=== PATIENT | female | born 1970 | race Caucasian/White ===

== ENCOUNTER 2016-06-29 17:07 | Emergency (ER) | payer BC ==
[2016-06-29] MEDS ORDERED: Morphine Sulfate 2 MG/ML SYRINGE ONE (18:01)
[2016-06-29] MEDS ORDERED: Sulfameth/Trimethoprim DS 800-160mg TAB ONE (18:01)
[2016-06-29] MEDS ORDERED: Cephalexin 500 MG CAP ONE (18:01)
--- NOTE | 2016-06-29 18:19 | ERRECORD ---
[facility] EMERGENCY RECORD HPI ABSCESS (18:03 LLDO) CHIEF COMPLAINT: Patient presents for evaluation of swelling, Patient presents for evaluation of pain, Denies drainage from wound, Denies suspected foreign body, Patient presents for evaluation of has 2 superficial abscesses in the hairline at the back of the neck. swollen and tender. terrified she has spider eggs growing in her neck and they will destroy the previous neck surgery. 3 days. very tender. HISTORIAN: History provided by patient, History provided by patient's family. LOCATION: Symptoms are localized. QUALITY: Pain is dull in nature, described as aching, described as BECOMES SHARP WITH MOVEMENT OR PALPATION. SEVERITY: Maximum severity of symptoms severe, Currently symptoms are moderate. TIME COURSE: Gradual onset of symptoms, Symptoms are worsening, are constant. ASSOCIATED WITH: No associated chills, No associated drainage, No associated fever, No associated nausea, No associated proximal streaking, Associated with warmth. COMPLICATING FACTORS: No complicating factors for wound healing. EXACERBATED BY: Patient's condition exacerbated by MOVEMENT, PALPATION. RELIEVED BY: Patient's condition relieved by nothing. TETANUS: Tetanus status up to date. ROS CONSTITUTIONAL: Negative constitutional review of systems. (18:07 LLDO) EYES: Negative eye review of systems, Historian denies eye pain, denies eye redness, denies eye discharge. (18:08 LLDO) ENT: Negative ears, nose, throat review of systems, Historian denies epistaxis, denies rhinorrhea, denies sinus pain, denies sore throat. (18:08 LLDO) MUSCULOSKELETAL: Negative musculoskeletal review of systems, Historian denies arthralgias, denies back pain, denies injury, denies myalgias, denies neck pain. (18:08 LLDO) SKIN: Historian reports skin changes, reports skin lesions. IN HPI. (18:07 LLDO) NEUROLOGIC: Negative neurologic review of systems, Historian denies confusion, denies dizziness, denies focal weakness, denies mental status changes. (18:08 LLDO) HEMO/LYMPHATIC: Normal hematologic/lymphatic system review, Historian denies abnormal blood clotting, denies gum bleeding, denies petechiae. (18:08 LLDO) ALLERGIC/IMMUNOLOGIC: Normal allergy/immunologic system review, Historian denies eczema, denies environmental allergies, denies food allergies. (18:08 LLDO) PSYCHIATRIC: Negative psychiatric review of systems, Historian denies alcohol abuse, denies anxiety, denies depression, denies drug abuse, denies hallucinations. (18:08 LLDO) NOTES: All systems reviewed, negative except as described above. &a-1R&a+25V*p+0X*[id number]*c202B*c15G*c2P*p-0X&a-25V&a+1R Name: Yulia Melissa : 1970 F45 MedRec: [id number] AcctNum: [id number] Prepared: [place] Jun 29, 2016 18:26 by Interface Page 1 of 4 pMD [facility] EMERGENCY RECORD (18:07 LLDO) PAST MEDICAL HISTORY MEDICAL HISTORY: Notes: VERIFIED 06-29-16, Flu vaccine not up to date, Tetanus immunization up to date, Pneumococcal vaccine not up to date, Past medical history includes history of malignancy, primary site cervical, treated with surgery, Notes: bipolar, Notes: HEP C. ([place] Jun 29, 2016 17:30 JPER) FEMALE SURGICAL HISTORY: VERIFIED 03-29-14, Surgical history of orthopedic surgery, neck, Surgical history of tubal ligation. ([place] Jun 29, 2016 17:30 JPER) SOCIAL HISTORY: Social History includes VERIFIED 06-29-16, Patient denies alcohol use, Patient denies drug use, Patient currently uses tobacco, smokes cigarettes, Lives at home, with family, Patient denies alcohol use, Patient denies drug use, Patient is a former tobacco user, smoked cigarettes, Patient quit smoking in the past year, Social History includes VERIFIED 03-29-14, Patient currently uses tobacco, Patient smokes cigarettes, Patient smokes 1 pack per day, Patient denies alcohol use, Patient denies drug use. Patient currently uses drugs, abuses marijuana, Drug history notes: H/O METH ABUSE, Patient currently uses tobacco, Patient smokes cigarettes, Patient smokes 1 pack per day, Patient denies alcohol use, Patient denies drug use. ON VAPOR CIG. ([place] Jun 29, 2016 17:30 JPER) NOTES: Nursing records reviewed, Agree with nursing records, Medication list reviewed. (18:08 LLDO) KNOWN ALLERGIES No Known Drug Allergies CURRENT MEDICATIONS (17:30 JPER) None VITAL SIGNS VITAL SIGNS: BP: 115/74, Pulse: 84, Resp: 22, Temp: 98.1 (Tympanic), O2 sat: 98 on Room Air, Time: 06/29/2016 17:27. (17:27 JPER) BP: 125/75, Pulse: 75, Resp: 22, Pain: 10, O2 sat: 98 on RA, Time: 06/29/2016 18:15. (18:15 JPER) PHYSICAL EXAM CONSTITUTIONAL: Vital signs reviewed, Patient afebrile, Pulse normal, Blood pressure normal, Respiratory rate normal, Patient appears, uncomfortable, Patient appears in pain, in moderate pain distress, SEVERE WITH ANY MOVEMENT OR PALPATION, Patient alert and oriented to person, place and time. (18:07 LLDO) HEAD: Head exam normal, Head exam included findings of head atraumatic, normocephalic. (18:08 LLDO) EYES: Eye exam normal, Eye exam included findings of eyelids &a-1R&a+25V*p+0X*t7523Z*c202B*c15G*c2P*p-0X&a-25V&a+1R Name: Yulia Melissa : 1970 F45 MedRec: [id number] AcctNum: [id number] Prepared: Skyla Jun 29, 2016 18:26 by Interface Page 2 of 4 pMD [facility] EMERGENCY RECORD normal to inspection, Pupils equally round and reactive to light, Extraocular muscles intact. (18:08 LLDO) ENT: ENT exam normal, Ear exam normal, Nose exam normal. (18:08 LLDO) NECK: Neck exam normal, Neck exam included findings of normal range of motion, Trachea midline, no meningeal signs, no tenderness. (18:08 LLDO) BACK: Back exam normal, Back exam included findings of normal inspection, range of motion normal. (18:08 LLDO) UPPER EXTREMITY: Upper extremity exam normal, Upper extremity exam included findings of inspection normal, Range of motion normal. (18:08 LLDO) LOWER EXTREMITY: Lower extremity exam normal, Lower extremity exam included findings of inspection normal, Range of motion normal. (18:08 LLDO) NEURO: Neuro exam normal, Neuro exam findings include patient oriented to person, place and time, Speech normal, Jill coma scale 15. (18:08 LLDO) SKIN: Skin exam included findings of skin warm, dry, and normal in color, ABSCESS(ES) NOTED ABOVE. (18:07 LLDO) PSYCHIATRIC: Psychiatric exam normal, Psychiatric exam included findings of patient oriented to person place and time, Normal affect. (18:08 LLDO) MEDICATION ADMINISTRATION SUMMARY Drug Name: *Tylenol-Codeine #3, Dose Ordered: 1-2 tab(s), Route: Oral, Status: Given, Time: 18:13 06/29/2016, Drug Name: Septra DS, Dose Ordered: 1 tab(s), Route: Oral, Status: Given, Time: 17:58 06/29/2016, Drug Name: Cefanex, Dose Ordered: 500 mg, Route: Oral, Status: Given, Time: 17:58 06/29/2016, Drug Name: Duramorph (PF), Dose Ordered: 6 mg, Route: Intramuscular, Status: Given, Time: 17:58 06/29/2016, *Additional information available in notes, Detailed record available in Medication Service section. PROBLEM LIST No recorded problems DIAGNOSIS (18:00 LLDO) FINAL: PRIMARY: superficial abscess, occiput. PRESCRIPTION (18:01 LLDO) Keflex: CAPSULE (HARD, SOFT, ETC.) : 500 mg : ORAL : Quantity: 1 Unit: cap(s) Route: ORAL Schedule: 3 times a day Dispense: 30 May substitute. Refills: No Refills . Septra DS: TABLET : 800 mg-160 mg : ORAL : Quantity: 1 Unit: tab(s) Route: ORAL Schedule: 2 times a day (before meals) &a-1R&a+25V*p+0X*k9415M*c202B*c15G*c2P*p-0X&a-25V&a+1R Name: Yulia Melissa : 1970 F45 MedRec: [id number] AcctNum: [id number] Prepared: Skyla Jun 29, 2016 18:26 by Interface Page 3 of 4 pMD [facility] EMERGENCY RECORD Dispense: 20 May substitute. Refills: No Refills . Tylenol-Codeine #3: TABLET : 300 mg-30 mg : ORAL : Quantity: 1-2 Unit: tab(s) Route: ORAL Schedule: every 4 hours prn Dispense: 30 Unit: tab(s) May substitute. Refills: No Refills . DISPOSITION PATIENT: Disposition Type: Discharge, Disposition: *Discharge Home. (18:00 CHERRI) Patient left the department. (18:23 BILL) Diaz: BILL=PATY Bedoya, Dixie HARLEY=MD Aamir, Griffin &a-1R&a+25V*p+0X*[id number]*c202B*c15G*c2P*p-0X&a-25V&a+1R Name: Yulia Melissa : 1970 F45 MedRec: [id number] AcctNum: [id number] Prepared: Skyla Jun 29, 2016 18:26 by Interface Page 4 of 4 pMD MTDD
--- NOTE | 2016-06-29 18:25 | PICIS ---
[facility] EMERGENCY RECORD TRIAGE (ThuJun 29, 2016 17:30 JPER) PATIENT: NAME: Yulia Melissa, AGE: 45, GENDER: female, : Thu1970, TIME OF GREET: ThuJun 29, 2016 17:08, PREFERRED LANGUAGE: Persian, RACE: WHITE, ETHNICITY: Not or , FALL RISK: NO, ECODE BILLING MAP: [facility], SSN: [id number], Zip Code: [address], KG WEIGHT: 72.57, PHONE: , , , PERSON ID: [id number], PCP: MD Reyes Grover. (ThuJun 29, 2016 17:30 JPER) COMPLAINT: BUMP ON HEAD-HEADACHE. (ThuJun 29, 2016 17:30 JPER) ADMISSION: URGENCY: 4 Non Urgent, ADMISSION SOURCE: Home, TRANSPORT: Walk-in, BED: ED -03. (ThuJun 29, 2016 17:30 JPER) ASSESSMENT: Assessment: POSS SPIDER BITE TO POST NECK X 3 DAYS. (ThuJun 29, 2016 17:30 JPER) PAIN: Location PT CRYING; EATING TRAIL MIX AND TEXTING ON PHONE. (ThuJun 29, 2016 17:30 JPER) IMMUNIZATIONS: Tetanus immunization up to date. (ThuJun 29, 2016 17:30 JPER) SIRS SCORING: Heart Rate 55-109 (0), Temp range 96.8-101.1 (0), respiratory rate 12-24 (0), Mental Status altered: no (0). (ThuJun 29, 2016 17:30 JPER) TRIAGE SCREENING: Patient denies suicidal ideation, Patient denies presence of domestic violence. (ThuJun 29, 2016 17:30 JPER) PROVIDERS: TRIAGE NURSE: Dixie Bedoya RN. (ThuJun 29, 2016 17:30 JPER) VITAL SIGNS: BP 115/74, Pulse 84, Resp 22, Temp 98.1, (Tympanic), O2 Sat 98, on Room Air, Time 06/29/2016 17:27. (17:27 JPER) PREVIOUS VISIT ALLERGIES: No Known Drug Allergies. (ThuJun 29, 2016 17:30 JPER) KNOWN ALLERGIES No Known Drug Allergies CURRENT MEDICATIONS (17:30 JPER) None VITAL SIGNS VITAL SIGNS: BP: 115/74, Pulse: 84, Resp: 22, Temp: 98.1 (Tympanic), O2 sat: 98 on Room Air, Time: 06/29/2016 17:27. (17:27 JPER) BP: 125/75, Pulse: 75, Resp: 22, Pain: 10, O2 sat: 98 on RA, Time: 06/29/2016 18:15. (18:15 JPER) NURSING ASSESSMENT: SKIN (17:37 JPER) CONSTITUTIONAL: Patient arrives, via hospital wheelchair, Gait steady, History obtained from patient, Patient appears, PT CRYING WHEN ARRIVING IN TRIAGE; HAS BEEN EATING TRAIL MIX AND TEXTING IN LOBBY UNTIL BROUGHT BACK TO TRIAGE, Patient cooperative, Patient alert, Oriented to person, place and time, Skin warm, Skin dry, Skin normal in color, Mucous membranes pink, Mucous membranes &a-1R&a+25V*p+0X*i4274N*c202B*c15G*c2P*p-0X&a-25V&a+1R Name: Yulia Melissa : 1970 F45 MedRec: [id number] AcctNum: [id number] Prepared: Skyla Jun 29, 2016 18:32 by Interface Page 1 of 7 pMD [facility] EMERGENCY RECORD moist, Patient is well-groomed, Patient complains of POSS SPIDER BITE TO POST NECK. PAIN: aching pain, Pain exacerbated by nothing, Nothing has been tried to alleviate the pain. SKIN: Skin assessment findings include skin warm, Skin dry, Skin normal in color, Inspection findings include lesion(s), to POST NECK LEFT AT THE HAIRLINE, Description: RED TO BLACK 1CM LESION POSS BITE. NURSING PROCEDURE: DISCHARGE NOTE (18:15 JPER) DISCHARGE: Patient discharged to home, ambulating without assistance, family driving, accompanied by parent, Summary of Care printed/ provided, Patient requested and was provided an electronic copy of Discharge Instructions, Transition record given to patient, Discharge instructions given to patient, Prescriptions given and instructions on side effects given, Above person(s) verbalized understanding of discharge instructions and follow-up care, Patient treated and evaluated by physician. BELONGINGS: Belongings remain with patient, Valuables remain with patient. NOTES: Emotional support needed and given, Patient tolerated procedure well. VITAL SIGNS: BP: 125, / 75, Pulse: 75, Resp: 22, Pain: 10, O2 sat: 98, on: RA. MEDICATION ADMINISTRATION SUMMARY Drug Name: *Tylenol-Codeine #3, Dose Ordered: 1-2 tab(s), Route: Oral, Status: Given, Time: 18:13 06/29/2016, Drug Name: Septra DS, Dose Ordered: 1 tab(s), Route: Oral, Status: Given, Time: 17:58 06/29/2016, Drug Name: Cefanex, Dose Ordered: 500 mg, Route: Oral, Status: Given, Time: 17:58 06/29/2016, Drug Name: Duramorph (PF), Dose Ordered: 6 mg, Route: Intramuscular, Status: Given, Time: 17:58 06/29/2016, *Additional information available in notes, Detailed record available in Medication Service section. MEDICATION SERVICE Cefanex: Order: Cefanex (cephalexin monohydrate) - Dose: 500 mg : Oral Schedule: Now Ordered by: Griffin Rutledge MD Entered by: MD Skyla Oshe[place] Jun 29, 2016 17:57 Documented as given by: PATY Smith Jun 29, 2016 17:58 Patient, Medication, Dose, Route and Time verified prior to administration. Amount given: 500MG, Site: Medication administered P.O., Correct patient, time, route, dose and medication confirmed prior to administration, Patient advised of actions and side-effects prior to &a-1R&a+25V*p+0X*b5524Q*c202B*c15G*c2P*p-0X&a-25V&a+1R Name: Yulia Melissa : 1970 F45 MedRec: [id number] AcctNum: [id number] Prepared: Skyla Jun 29, 2016 18:32 by Interface Page 2 of 7 pMD [facility] EMERGENCY RECORD administration, Allergies confirmed and medications reviewed prior to administration, Administered by EHSAN NEWMAN, Patient in position of comfort, Side rails up, Cart in lowest position, Family at bedside. Duramorph (PF): Order: Duramorph (PF) (morphine sulfate/preservative free) - Dose: 6 mg : Intramuscular Schedule: Now Ordered by: Griffin Rutledge MD Entered by: Griffin Rutledge MD [place] Jun 29, 2016 17:57 Documented as given by: Dixie Bedoya RN [place] Jun 29, 2016 17:58 Patient, Medication, Dose, Route and Time verified prior to administration. IM medication, Amount given: 6MG, Medication administered to right hip, Correct patient, time, route, dose and medication confirmed prior to administration, Patient advised of actions and side-effects prior to administration, Allergies confirmed and medications reviewed prior to administration, Administered by EHSAN NEWMAN, Patient in position of comfort, Side rails up, Cart in lowest position, Family at bedside. Septra DS: Order: Septra DS (sulfamethoxazole/trimethoprim) - Dose: 1 tab(s) : Oral Schedule: Now Ordered by: Griffin Rutledge MD Entered by: Griffin Rutledge MD [place] Jun 29, 2016 17:57 Documented as given by: Dixie Bedoya RN [place] Jun 29, 2016 17:58 Patient, Medication, Dose, Route and Time verified prior to administration. Amount given: 1TAB, Site: Medication administered P.O., Correct patient, time, route, dose and medication confirmed prior to administration, Patient advised of actions and side-effects prior to administration, Allergies confirmed and medications reviewed prior to administration, Administered by EHSAN NEWMAN, Patient in position of comfort, Side rails up, Cart in lowest position, Family at bedside. Tylenol-Codeine #3: Order: Tylenol-Codeine #3 (acetaminophen/codeine phosphate) - Dose: 1-2 tab(s) : Oral Notes: THP OF 6 TABLETS 1-2 PO EVERY 4 HOURS NEEDED FOR PAIN Ordered by: Griffin Rutledge MD Entered by: Griffin Rutledge MD [place] Jun 29, 2016 17:58 Documented as given by: Dixie Bedoya RN [place] Jun 29, 2016 18:13 Patient, Medication, Dose, Route and Time verified prior to administration. Amount given: #[id number], Correct patient, time, route, dose and medication confirmed prior to administration, Patient advised of actions and side-effects prior to administration, Allergies confirmed and medications reviewed prior to administration, Administered by EHSAN NEWMAN. HPI ABSCESS (18:03 LLDO) CHIEF COMPLAINT: Patient presents for evaluation of swelling, Patient presents for evaluation of pain, Denies drainage from wound, Denies suspected foreign body, Patient &a-1R&a+25V*p+0X*w3904V*c202B*c15G*c2P*p-0X&a-25V&a+1R Name: Yulia Melissa : 1970 F45 MedRec: [id number] AcctNum: [id number] Prepared: Skyla Jun 29, 2016 18:32 by Interface Page 3 of 7 pMD [facility] EMERGENCY RECORD presents for evaluation of has 2 superficial abscesses in the hairline at the back of the neck. swollen and tender. terrified she has spider eggs growing in her neck and they will destroy the previous neck surgery. 3 days. very tender. HISTORIAN: History provided by patient, History provided by patient's family. LOCATION: Symptoms are localized. QUALITY: Pain is dull in nature, described as aching, described as BECOMES SHARP WITH MOVEMENT OR PALPATION. SEVERITY: Maximum severity of symptoms severe, Currently symptoms are moderate. TIME COURSE: Gradual onset of symptoms, Symptoms are worsening, are constant. ASSOCIATED WITH: No associated chills, No associated drainage, No associated fever, No associated nausea, No associated proximal streaking, Associated with warmth. COMPLICATING FACTORS: No complicating factors for wound healing. EXACERBATED BY: Patient's condition exacerbated by MOVEMENT, PALPATION. RELIEVED BY: Patient's condition relieved by nothing. TETANUS: Tetanus status up to date. ROS CONSTITUTIONAL: Negative constitutional review of systems. (18:07 LLDO) EYES: Negative eye review of systems, Historian denies eye pain, denies eye redness, denies eye discharge. (18:08 LLDO) ENT: Negative ears, nose, throat review of systems, Historian denies epistaxis, denies rhinorrhea, denies sinus pain, denies sore throat. (18:08 LLDO) MUSCULOSKELETAL: Negative musculoskeletal review of systems, Historian denies arthralgias, denies back pain, denies injury, denies myalgias, denies neck pain. (18:08 LLDO) SKIN: Historian reports skin changes, reports skin lesions. IN HPI. (18:07 LLDO) NEUROLOGIC: Negative neurologic review of systems, Historian denies confusion, denies dizziness, denies focal weakness, denies mental status changes. (18:08 LLDO) HEMO/LYMPHATIC: Normal hematologic/lymphatic system review, Historian denies abnormal blood clotting, denies gum bleeding, denies petechiae. (18:08 LLDO) ALLERGIC/IMMUNOLOGIC: Normal allergy/immunologic system review, Historian denies eczema, denies environmental allergies, denies food allergies. (18:08 LLDO) PSYCHIATRIC: Negative psychiatric review of systems, Historian denies alcohol abuse, denies anxiety, denies depression, denies drug abuse, denies hallucinations. (18:08 LLDO) NOTES: All systems reviewed, negative except as described above. (18:07 LLDO) PAST MEDICAL HISTORY MEDICAL HISTORY: Notes: VERIFIED 06-29-16, Flu &a-1R&a+25V*p+0X*l7661Q*c202B*c15G*c2P*p-0X&a-25V&a+1R Name: Yulia Melissa : 1970 F45 MedRec: [id number] AcctNum: [id number] Prepared: Skyla Jun 29, 2016 18:32 by Interface Page 4 of 7 pMD [facility] EMERGENCY RECORD vaccine not up to date, Tetanus immunization up to date, Pneumococcal vaccine not up to date, Past medical history includes history of malignancy, primary site cervical, treated with surgery, Notes: bipolar, Notes: HEP C. (Skyla Jun 29, 2016 17:30 JPER) FEMALE SURGICAL HISTORY: VERIFIED 03-29-14, Surgical history of orthopedic surgery, neck, Surgical history of tubal ligation. (Skyla Jun 29, 2016 17:30 JPER) SOCIAL HISTORY: Social History includes VERIFIED 06-29-16, Patient denies alcohol use, Patient denies drug use, Patient currently uses tobacco, smokes cigarettes, Lives at home, with family, Patient denies alcohol use, Patient denies drug use, Patient is a former tobacco user, smoked cigarettes, Patient quit smoking in the past year, Social History includes VERIFIED 03-29-14, Patient currently uses tobacco, Patient smokes cigarettes, Patient smokes 1 pack per day, Patient denies alcohol use, Patient denies drug use. Patient currently uses drugs, abuses marijuana, Drug history notes: H/O METH ABUSE, Patient currently uses tobacco, Patient smokes cigarettes, Patient smokes 1 pack per day, Patient denies alcohol use, Patient denies drug use. ON VAPOR CIG. (Skyla Jun 29, 2016 17:30 JPER) NOTES: Nursing records reviewed, Agree with nursing records, Medication list reviewed. (18:08 LLDO) PHYSICAL EXAM CONSTITUTIONAL: Vital signs reviewed, Patient afebrile, Pulse normal, Blood pressure normal, Respiratory rate normal, Patient appears, uncomfortable, Patient appears in pain, in moderate pain distress, SEVERE WITH ANY MOVEMENT OR PALPATION, Patient alert and oriented to person, place and time. (18:07 LLDO) HEAD: Head exam normal, Head exam included findings of head atraumatic, normocephalic. (18:08 LLDO) EYES: Eye exam normal, Eye exam included findings of eyelids normal to inspection, Pupils equally round and reactive to light, Extraocular muscles intact. (18:08 LLDO) ENT: ENT exam normal, Ear exam normal, Nose exam normal. (18:08 LLDO) NECK: Neck exam normal, Neck exam included findings of normal range of motion, Trachea midline, no meningeal signs, no tenderness. (18:08 LLDO) BACK: Back exam normal, Back exam included findings of normal inspection, range of motion normal. (18:08 LLDO) UPPER EXTREMITY: Upper extremity exam normal, Upper extremity exam included findings of inspection normal, Range of motion normal. (18:08 LLDO) LOWER EXTREMITY: Lower extremity exam normal, Lower extremity exam included findings of inspection normal, Range of motion normal. (18:08 LLDO) NEURO: Neuro exam normal, Neuro exam findings include patient oriented to person, place and time, Speech normal, Jill coma scale &a-1R&a+25V*p+0X*q4849U*c202B*c15G*c2P*p-0X&a-25V&a+1R Name: Yulia Melissa : 1970 F45 MedRec: [id number] AcctNum: [id number] Prepared: Skyla Jun 29, 2016 18:32 by Interface Page 5 of 7 pMD [facility] EMERGENCY RECORD 15. (18:08 LLDO) SKIN: Skin exam included findings of skin warm, dry, and normal in color, ABSCESS(ES) NOTED ABOVE. (18:07 LLDO) PSYCHIATRIC: Psychiatric exam normal, Psychiatric exam included findings of patient oriented to person place and time, Normal affect. (18:08 LLDO) EVENTS TRANSFER: Triage to Emergency Main ED -03. (Skyla Jun 29, 2016 17:30 JPER) Removed from Emergency Main ED -03. (18:23 JPER) PROBLEM LIST No recorded problems DIAGNOSIS (18:00 LLDO) FINAL: PRIMARY: superficial abscess, occiput. DISPOSITION PATIENT: Disposition Type: Discharge, Disposition: *Discharge Home. (18:00 LLDO) Patient left the department. (18:23 JPER) INSTRUCTION (18:03 LLDO) DISCHARGE: ABSCESS, ABX ONLY. FOLLOWUP: MD Amy, [facility], [address] [place] [address], , Follow up with Primary Care Physician in 5 days. SPECIAL: Follow-up with your PCP. PRESCRIPTION (18:01 LLDO) Keflex: CAPSULE (HARD, SOFT, ETC.) : 500 mg : ORAL : Quantity: 1 Unit: cap(s) Route: ORAL Schedule: 3 times a day Dispense: 30 May substitute. Refills: No Refills . Septra DS: TABLET : 800 mg-160 mg : ORAL : Quantity: 1 Unit: tab(s) Route: ORAL Schedule: 2 times a day (before meals) Dispense: 20 May substitute. Refills: No Refills . Tylenol-Codeine #3: TABLET : 300 mg-30 mg : ORAL : Quantity: 1-2 Unit: tab(s) Route: ORAL Schedule: every 4 hours prn Dispense: 30 Unit: tab(s) May substitute. Refills: No Refills . IMAGING MEDS: Image captured from scanner. (18:13 JPER) *DISCHARGE INSTRUCTIONS RECEIPT: Image captured from scanner. (18:21 JPER) *SUPPLY CHARGE SHEET: Image captured from scanner. (18:21 JPER) &a-1R&a+25V*p+0X*s7576J*c202B*c15G*c2P*p-0X&a-25V&a+1R Name: Yulia Melissa : 1970 F45 MedRec: [id number] AcctNum: [id number] Prepared: Skyla Jun 29, 2016 18:32 by Interface Page 6 of 7 D [facility] EMERGENCY RECORD ADMIN DIGITAL SIGNATURE: MD Rutledge Lloyd. (18:08 LL) PATY Bedoya Jana. (18:23 JPER) Diaz: JPER=PATY Bedoya Jana LLDO=MD Rutledge Lloyd &a-1R&a+25V*p+0X*u8413Y*c202B*c15G*c2P*p-0X&a-25V&a+1R Name: Yulia Melissa : 1970 F45 MedRec: [id number] AcctNum: [id number] Prepared: Skyla Jun 29, 2016 18:32 by Interface Page 7 of 7 pMD [facility] MEDICATION RECONCILIATION You were seen in the Emergency Department on: Skyla Jun 29, 2016 KNOWN ALLERGIES No Known Drug Allergies MEDICATIONS GIVEN WHILE IN THE EMERGENCY DEPARTMENT Duramorph (PF) (morphine sulfate/preservative free) - Dose: 6 milligram(s) : Intramuscular Septra DS (sulfamethoxazole/trimethoprim) - Dose: 1 tab(s) : Oral Cefanex (cephalexin monohydrate) - Dose: 500 milligram(s) : Oral Tylenol-Codeine #3 (acetaminophen/codeine phosphate) - Dose: 1-2 tab(s) : Oral HOME MEDICATIONS None Notes from the emergency department Reviewed with family Reviewed with patient PRESCRIPTIONS (3) Printed (3) Keflex : CAPSULE (HARD, SOFT, ETC.) : 500 mg : ORAL Quantity: 1, Unit: cap(s), Route: ORAL, Schedule: 3 times a day, Dispense: 30 Septra DS : TABLET : 800 mg-160 mg : ORAL Quantity: 1, Unit: tab(s), Route: ORAL, Schedule: 2 times a day (before meals), Dispense: 20 &a-1R&a+25V*p+0X*n1223O*c202B*c15G*c2P*p-0X&a-25V&a+1R Name: Yulia Melissa DOB: 1970 F45 MedRec: [id number] AcctNum: [id number] Prepared: Skyla Jun 29, 2016 18:32 by Interface pMD [facility]
== END 2016-06-29 18:15 | disposition home or self-care (01) ==
LOC: MADERS 17:07
DX: L02.811 Cutaneous abscess of head [any part, except face] (principal); F31.9 Bipolar disorder, unspecified; Z98.51 Tubal ligation status; Z87.891 Personal history of nicotine dependence
CPT/HCPCS: 96372; J2270

== ENCOUNTER 2017-09-17 17:58 | Emergency (ER) | payer BC, SELFPAY ==
[~2017-09-17 17:58] MED LIST: Lactated Ringer's 1,000 ML BAG ONE; Sodium Chloride 0.9% 1,000 ML BAG ONE
[2017-09-17] MEDS ORDERED: Ondansetron HCl/PF 4 MG/2 ML Vial ONE (18:11)
[2017-09-17] MEDS ORDERED: Ketorolac Tromethamine 30 MG/ML VIAL ONE (18:11)
[2017-09-17 18:53] LABS: #Basophils 0.1 thou/uL (0.0-0.2); #Eosinphils 0.1 thou/uL (0.0-0.7); #Lymphocytes 1.5 thou/uL (1.20-3.40); #Monocytes 1.5 thou/uL (0.11-0.59); #Neutrophils 10.6 thou/uL (1.40-6.50); %Basophils 0.6 % (0.0-1.0); %Eosinophils 0.5 % (0.0-10.0); %Lymphocytes 11.1 % (21.0-51.0); %Monocytes 10.8 % (0.0-10.0); Hemoglobin 13.8 g/dL (12.0-16.0); Mean Corpuscular Hemoglobin 30.4 pg (27.0-31.0); Mean Corpuscular Volume 89.4 fl (81.0-99.0); Mean Platelet Volume 5.9 fL (7.4-10.4); Platelet Count 427 thou/uL (130-400); RBC Distribution Width 13.1 % (11.5-14.5); Red Blood Cell (RBC) Count 4.55 mill/uL (4.20-5.40); White Blood Cell (WBC) Count 13.7 thou/uL (4.8-10.8)
[2017-09-17 19:09] LABS: Anion Gap 17 mmol/L (10-20); BUN (Urea Nitrogen) 23 mg/dL (7.0-18.7); Calc. Creatinine Clearance 0 mL/min (70-130); Calcium 8.8 mg/dL (7.8-10.44); Carbon Dioxide 24 mmol/L (22-29); Chloride 104 mmol/L (98-107); Estimated GFR-MDRD 72; Glucose 92 mg/dL (70-105); Potassium 4.7 mmol/L (3.5-5.1); Sodium 140 mmol/L (136-145)
[2017-09-17 20:26] LABS: Clarity Hazy (Clear); Leukocyte Trace (Negative); Nitrite Positive (Negative); pH, Urine 5.5 (5.0-9.0)
[2017-09-17 20:27] LABS: Bilirubin Negative (Negative); Blood, Urine Large (Negative); Glucose, Urine (Dipstick) Negative (Negative); Protein, Urine (Dipstick) 30 mg/dL (Neg-Trace)
[2017-09-17 20:40] LABS: Bacteria/HPF 4+ HPF (None Seen); WBC/HPF 21-50 HPF (0-3)
[2017-09-17] MEDS ORDERED: cefTRIAXone\\ROCEPHIN 1 GM VIAL ONE (20:45)
--- NOTE | 2017-09-17 21:27 | CT ---
CT ABDOMEN AND PELVIS WITHOUT CONTRAST 09/17/17 COMPARISON: 08/14/11 HISTORY: Abdominal pain. TECHNIQUE: Multiple contiguous axial images were obtained in a CT of the abdomen and pelvis without contrast. Co kamron reformats were performed. 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 No c alcifications are seen in either renal collecting system, within the ureters, or within the urinary b ladder. There are phleboliths in the pelvis. A tampon is seen within the vagina. The reproductive organs are unremarkable. No free air, free fluid , or stranding changes are seen in the abdomen or pelvis. The liver, gallbladder, adrenal glands, spleen, and pancreas are unremarkable on this limited noncont rast examination. The large and small bowel are unremarkable. The appendix is unremarkable. No abdomi nal or pelvic lymphadenopathy are seen. Mild degenerative changes are seen in the spine. The visualized inferior thorax and abdominal wall so ft tissues are unremarkable. IMPRESSION: 1. No evidence of acute abdominal/pelvic abnormality. 2. 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 POS: LATA
[2017-09-17] MEDS ORDERED: Morphine 10 MG/ML VIAL ONE (22:22)
== END 2017-09-17 22:35 | disposition short-term general hospital (02) ==
LOC: MADERS 17:58
DX: N20.0 Calculus of kidney (principal); F31.9 Bipolar disorder, unspecified; F17.210 Nicotine dependence, cigarettes, uncomplicated; Z85.41 Personal history of malignant neoplasm of cervix uteri
CPT/HCPCS: 36415; 51701; 74176; 80048; 81003; 81015; 85025; 87040; 87077; 87086; 87186; 96361; 96374; 96375; J0696; J1885; J2270; J2405